=== PATIENT | female | born 1960 | race Caucasian/White ===

== ENCOUNTER 2017-09-14 05:56 | Day surgery (SDC) | payer BC ==
[~2017-09-14 05:56] MED LIST: Buffered Lidocaine 0.9% SYRIN* 5 ML/SYR SYRINGE INTRADERM ONE
[2017-09-14] MEDS ORDERED: Clindamycin 900 MG IVPREMIX(* 900 MG/50 ML SDV IV ONE (06:02)
[2017-09-14] MEDS ORDERED: Buffered Lidocaine 0.9% SYRIN* 5 ML/SYR SYRINGE ONE (06:02)
[2017-09-14] MEDS ORDERED: Lidocaine 1% INJ* 10 MG/ML 30 ML SDV ONE (07:06)
[2017-09-14] MEDS ORDERED: Midazolam* 1 MG/ML 5 ML VIAL (5 MG) ONE (07:47)
[2017-09-14] MEDS ORDERED: fentaNYL* 50 MCG/ML 2 ML VIAL (100 MCG VIAL) ONE (07:47)
[2017-09-14] MEDS ORDERED: Propofol* 10 MG/ML 20 ML BTL IV PUSH ONE (08:54)
[2017-09-14] MEDS ORDERED: oxyCODONE/Acetamin 5/325 MG* TAB PO PRN (09:03)
--- NOTE | 2017-09-14 09:08 | SURGPN ---
Brief Operative Note - Surgery Procedures: OPERATIVE REPORT PRE-OP: Left breast cancer POST-OP: Same PROCEDURE: Insertion of Right chest wall percutaneous 8F PowerPort SURGEON: MD Werner ANESTHESIA:Local with MAC Dr. Love ASST: none IVF: min EBL: min SPECIMEN: min DRAIN: none WOUND CLASS: One COMPLICATIONS: none TO PACU
--- NOTE | 2017-09-14 09:20 | RAD ---
INDICATION: Status post Mediport placement COMPARISON: None. TECHNIQUE: Single AP portable view of the chest was obtained. FINDINGS: Image quality is compromised due to the relative inferiority of a portable chest x-ray. There is a right subclavian vein Mediport with the tip terminating at the cavoatrial junction. The heart and mediastinum exhibit normal size and contour. The lungs are grossly clear. There is no pneumothorax. Visualized bones are normal for the patient's age. IMPRESSION: No radiographic evidence for acute cardiopulmonary abnormality on this portable chest x-ray status post right SCV Mediport placement.
[2017-09-14 09:41] VITALS: BP 117/81
--- NOTE | 2017-09-14 10:05 | RAD ---
CPT II Codes: 6045F INDICATION: PowerPort insertion Fluoroscopic services provided for referring physician for PowerPort insertion. For 1 minute and 44 seconds of fluoroscopy time was used. There is placement of a PowerPort into 4 spot images. IMPRESSION: Fluoroscopic services provided for referring physician for PowerPort insertion.
--- NOTE | 2017-09-15 04:35 | OP ---
CC: Dr. Dominique Garcia * DATE OF OPERATION: 09/14/17 - [facility] DATE OF : 60 SURGEON: Jonatan Caldera MD EDITORIAL INTERN: None. ANESTHESIOLOGIST: Amaris Love MD ANESTHESIA: Local with monitored anesthesia care. PRE-OP DIAGNOSIS: Left breast cancer. POST-OP DIAGNOSIS: Left breast cancer. OPERATIVE PROCEDURE: Insertion of a right chest wall 8-[place]ic PowerPort placed percutaneously in the subclavian vein. INDICATIONS: Ms. Marce Girard is a 57-year-old woman recently diagnosed with a left-sided breast cancer, who under-went lumpectomy with sentinel node biopsies and will require chemotherapy. ESTIMATED BLOOD LOSS: Minimal. WOUND CLASSIFICATION: I. COMPLICATIONS: None. DRAINS: None. IV FLUIDS: Minimal. SPECIMENS: None. DESCRIPTION OF PROCEDURE: Written and informed consent was obtained, the right chest was marked with indelible ink and preoperative antibiotics were administered. The patient was taken to the operating room and placed in the supine position. Sequential compression devices and a warming blanket were applied. The right chest and neck were prepped and draped in the usual sterile fashion. Time-out verification was completed. The patient was placed in Trendelenburg position and 1% lidocaine with epinephrine was infiltrated in the right chest wall just below the clavicle. Using an 18-gauge Cook needle passing out of the clavicle, the subclavian vein was punctured during the first pass with good blood return. The guidewire was inserted without difficulty and was confirmed by fluoroscopy to be in the superior vena cava at the junction of the atrium. Additional lidocaine was infiltrated in the chest wall and the transverse incision was made just below the puncture site. The pocket was made inferiorly to this incision large enough to permit the port with ease. Next, the catheter was tunneled from the puncture site to the pocket in usual fashion. Using the sheath peel-away dilator system, the catheter was then inserted into the central venous system and by fluoro was positioned at the junction of the right atrium and superior vena cava. The catheter was then cut to the appropriate length and attached to the port, which was then placed in the pocket. It was sutured to the surrounding tissue with 2 separate 3-0 Prolene suture. Fluoroscopy confirmed good positioning of the port in the central system with no kinking or twisting of the port in the chest wall. The catheter was flushed and with sisi blood well and then subsequently was flushed with heparin solution. Hemostasis was then assured. The wound was closed in layers with 3-0 and 4-0 Polysorb suture. Steri-Strips and sterile occlusive dressings were applied. The patient was taken to the recovery room in stable condition. Postprocedural chest x-ray showed the catheter to be in good position without evidence of pneumothorax or other acute change. [id number]/[facility] #: [id number] [facility]OSPITALManasa
== END 2017-09-14 09:41 | disposition home or self-care (01) ==
LOC: OR 05:56
PROVIDERS: ATTEND Surgery
DX: C50.412 Malignant neoplasm of upper-outer quadrant of left female breast (principal); E03.9 Hypothyroidism, unspecified; Z87.891 Personal history of nicotine dependence; Z88.1 Allergy status to other antibiotic agents
CPT/HCPCS: 71010; 76001; C1788; J1642; J2250; J2704; J3010

== ENCOUNTER 2019-12-31 10:48 | Emergency (ER) | payer BC ==
[2019-12-31 11:04] VITALS: BP 116/70
--- NOTE | 2019-12-31 11:56 | ED ---
Respiratory - HPI Summary HPI Summary: 59 yo WF p/w cough with pleuritic CP x few days, cough started about 6 weeks ago but never really resolved, denies flu-like sx, denies f/c/n/v/d. - History of Current Complaint Chief Complaint: UCRespiratory Stated Complaint: COUGH SORE THROAT CHEST CONGESTION Time Seen by Provider: 12/31/19 11:08 Hx Obtained From: Patient Onset/Duration: Lasting Days Initial Severity: Moderate Current Severity: Moderate Pain Intensity: 2 Character: Cough (Productive) Sputum Amount: None Aggravating Factor(s): Other - cold air Alleviating Factor(s): Nothing Associated Signs and Symptoms: Negative - Allergy/Home Medications Allergies/Adverse Reactions: Allergies Allergy/AdvReac Type Severity Reaction Status Date / Time ampicillin Allergy Rash Verified 12/31/19 11:04 Home Medications: Home Medications Levothyroxine Sodium [Synthroid] 100 mcg PO QAM 09/09/17 [History Confirmed ] Cholecalciferol TAB* [Vitamin D TAB*] 5,000 unit PO DAILY 03/08/19 [History Confirmed 12/31/19] Latisse 1 applic BOTH EYES DAILY 03/08/19 [History Confirmed 12/31/19] Letrozole 2.5 mg PO DAILY 03/08/19 [History Confirmed 12/31/19] Vitamin B Complex CAP* [B Complex CAP*] 1 cap PO DAILY 03/08/19 [History Confirmed 12/31/19] Azithromyxin JOVANNA (NF) [Z-Jovanna (Zithromax) 250 mg tabs #6] 2 tab PO .TODAY, THEN 1 DAILY #6 tab 12/31/19 [Rx] PMH/Surg Hx/FS Hx/Imm Hx Previously Healthy: Yes Endocrine/Hematology History: Reports: Hx Thyroid Disease Denies: Hx Diabetes Cardiovascular History: Denies: Hx Hypertension History: Denies: Hx Dialysis, Hx Renal Disease - Cancer History Cancer Type, Location and Year: left breast cancer Hx Chemotherapy: Yes - COMPLETED 02/03 Hx Radiation Therapy: Yes - COMPLETED 03/05 - Surgical History Surgery Procedure, Year, and Place: left breast lumpectomy with axillary dissection - [facility] Anesthesia Reactions: No Infectious Disease History: Yes Infectious Disease History: Reports: Hx Shingles - possible or second occurance of chicken pox Denies: Traveled Outside the [place] in Last 30 Days - Family History Known Family History: Positive: Non-Contributory - Social History Occupation: Employed Full-time Alcohol Use: Daily Alcohol Amount: 1 beer per day Substance Use Type: Reports: None Smoking Status (MU): Former Smoker Type: Cigarettes Amount Used/How Often: socially for 2 yrs Review of Systems Constitutional: Negative Eyes: Negative ENT: Negative Cardiovascular: Negative Positive: Cough Gastrointestinal: Negative Genitourinary: Negative Musculoskeletal: Negative Skin: Negative Neurological/Mental Status: Negative All Other Systems Reviewed And Are Negative: Yes Physical Exam - Summary Physical Exam Summary: Vital Signs Reviewed: Yes Gen: NAD Eye Exam: Normal Eyes: Positive: Conjunctiva Clear ENT: Normal ENT inspection Neck: Supple Respiratory: rhonchi with cough Cardiovascular Exam: Normal, RRR, S1, S2 Abdomen: NT/ND Musculoskeletal Exam: Normal Neurological Exam: Normal Psychological Exam: Normal Skin Exam: Normal Vital Signs On Initial Exam: Initial Vitals Temp Pulse Resp BP Pulse Ox 36.4 C 89 16 116/70 99 12/31/19 10:58 12/31/19 10:58 12/31/19 10:58 12/31/19 10:58 12/31/19 10:58 Diagnostics - Vital Signs Vital Signs Temp Pulse Resp BP Pulse Ox 12/31/19 10:58 36.4 C 89 16 116/70 99 - Laboratory Lab Statement: Any lab studies that have been ordered have been reviewed, and results considered in the medical decision making process. Disposition - Course Assessment/Plan: CXR reveals perihilar peribronchial cuffing, will tx for bronchitis - Diagnoses Provider Diagnoses: Bronchitis, Cough Discharge ED - Sign-Out/Discharge Documenting (check all that apply): Patient Departure All imaging exams completed and their final reports reviewed: Yes - Discharge Plan Condition: Stable Disposition: HOME Prescriptions: Azithromyxin JOVANNA (NF) [Z-Jovanna (Zithromax) 250 mg tabs #6] 2 tab PO .TODAY, THEN 1 DAILY #6 tab Patient Education Materials: Acute Bronchitis (ED) Referrals: Zonia Chase MD [Primary Care Provider] - - Billing Disposition and Condition Condition: STABLE Disposition: Home
== END 2019-12-31 11:55 | disposition home or self-care (01) ==
LOC: UCEAST 10:48
DX: J40 Bronchitis, not specified as acute or chronic (principal); R05 Cough; Z88.0 Allergy status to penicillin; E07.9 Disorder of thyroid, unspecified; Z79.890 Hormone replacement therapy; Z85.3 Personal history of malignant neoplasm of breast; Z92.21 Personal history of antineoplastic chemotherapy; Z92.3 Personal history of irradiation; Z87.891 Personal history of nicotine dependence
CPT/HCPCS: 71046; 99212; G0463